=== PATIENT | female | born 1955 | race Caucasian/White ===

== ENCOUNTER 2018-04-26 10:16 | Emergency (ER) | payer MEDICARE ==
[2018-04-26] MEDS ORDERED: IOHEXOL 350 MG/ML 10 ML VIAL (for RAD DIAG) IVCONTRAST ONE (10:17)
[2018-04-26 10:28] VITALS: BP 124/71; PULSE 72; RESP 16; TEMP 98.7; O2SAT 99
[2018-04-26] MEDS ORDERED: TRAM50TA PO (11:01)
[2018-04-26] MEDS ORDERED: MELA5 PO (11:01)
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
[2018-04-26 11:41] LABS: AUTOMATED NEUTROPHIL # 3.1 TH/MM3 (1.8-7.7); BASOPHIL # 0.1 TH/MM3 (0-0.2); BASOPHIL % 1.5 % (0.0-2.0); EOSINOPHIL # 0.2 TH/MM3 (0-0.4); EOSINOPHIL % 4.3 % (0.0-4.0); HEMATOCRIT 37.9 % (35.0-46.0); HEMOGLOBIN 12.8 GM/DL (11.6-15.3); LYMPH % 30.8 % (9.0-44.0); LYMPHOCYTE # 1.7 TH/MM3 (1.0-4.8); MEAN CELL VOLUME 90.2 FL (80.0-100.0); MEAN CORPUSCULAR HEMOGLOBIN 30.5 PG (27.0-34.0); MEAN CORPUSCULAR HGB CONC 33.8 % (32.0-36.0); MEAN PLATELET VOLUME 7.4 FL (7.0-11.0); MONO % 7.4 % (0.0-8.0); MONOCYTE # 0.4 TH/MM3 (0-0.9); PLATELET COUNT 450 TH/MM3 (150-450); RED CELL DISTRIBUTION WIDTH 13.6 % (11.6-17.2); WHITE BLOOD COUNT 5.5 TH/MM3 (4.0-11.0)
[2018-04-26] MEDS ORDERED: KETOROLAC TROMETHAMINE 30 MG/ML (IVP) VIAL IV PUSH ONE (12:30)
[2018-04-26 12:40] LABS: PROTHROMBIN TIME - PATIENT 10.6 SEC (9.8-11.6)
[2018-04-26 12:50] LABS: ALBUMIN 3.7 GM/DL (3.4-5.0); AST (GOT) 15 U/L (15-37); BICARBONATE 24.1 MEQ/L (21.0-32.0); BLOOD UREA NITROGEN 13 MG/DL (7-18); CHLORIDE 105 MEQ/L (98-107); CREATININE 0.89 MG/DL (0.50-1.00); GLOMERULAR FILTRATION RATE 64 ML/MIN (>89); GLUCOSE,RANDOM 92 MG/DL (74-106); MAGNESIUM 2.3 MG/DL (1.5-2.5); SODIUM (NA) 138 MEQ/L (136-145)
[2018-04-26 12:51] LABS: ALT (GPT) 21 U/L (10-53)
[2018-04-26 12:55] LABS: ALKALINE PHOSPHATASE 90 U/L (45-117); TOTAL BILIRUBIN ADULT 0.3 MG/DL (0.2-1.0); TOTAL PROTEIN 7.3 GM/DL (6.4-8.2); TROPONIN I LESS THAN 0.02 NG/ML (0.02-0.05)
--- NOTE | 2018-04-26 13:56 | RADRPT ---
EXAM DATE: 04/26/2018 1:21 PM EDT AGE/SEX: 63 years / Female INDICATIONS: Midsternal chest pain, evaluate for pulmonary emboli. CLINICAL DATA: This is the patient's initial encounter. Patient reports that signs and symptoms have been present for 1 day and indicates a pain score of 7/10. MEDICAL/SURGICAL HISTORY: . history of pulmonary PE None. RADIATION DOSE: 7.66 CTDI (mGy) COMPARISON: No prior [facility] exams available for comparison. TECHNIQUE: Volumetric scanning was performed using a multi-row detector CT scanner during bolus infu mary kate of 70 ml Omnipaque 350 (iohexol) nonionic water-soluble contrast as a single exam dose. The ronnie a was post processed with a variety of visualization algorithms including full volume maximum intensi ty projection and sliding thin slab reformation. Using automated exposure control and adjustment of the mA and/or kV according to patient size, radiation dose was kept as low as reasonably achievable t o obtain optimal diagnostic quality images. FINDINGS: Pulmonary Arteries: No filling defects are seen in the pulmonary arteries out to the subsegmental ve ssels. The left and right pulmonary arteries are normal in diameter. Lung: No infiltrates seen. Effusion: None. Mediastinum: No evidence of mediastinal or hilar adenopathy. Other: The axilla is unremarkable. CONCLUSION: 1. This study is negative for pulmonary embolism. Electronically signed by: Ru Frank MD 04/26/2018 1:55 PM EDT
--- NOTE | 2018-04-26 14:04 | PD ---
Physical Exam Narrative GENERAL: 63 y/o female presents in no apparent distress SKIN: Focused skin assessment warm/dry. HEAD: Atraumatic. Normocephalic. EYES: Pupils equal and round. No scleral icterus. No injection or drainage. ENT: No nasal bleeding or discharge. Mucous membranes pink and moist. NECK: Trachea midline. CARDIOVASCULAR: Regular rate and rhythm. RESPIRATORY: No accessory muscle use. Clear to auscultation. Breath sounds equal bilaterally. GASTROINTESTINAL: Abdomen soft, non-tender, nondistended. MUSCULOSKELETAL: No obvious deformities. No clubbing. No cyanosis. No edema. NEUROLOGICAL: Awake and alert. No obvious cranial nerve deficits. Motor grossly within normal limits. Normal speech. PSYCHIATRIC: Appropriate mood and affect; insight and judgment normal. Data Data Last Documented VS Vital Signs Date Time Temp Pulse Resp B/P (MAP) Pulse Ox O2 Delivery O2 Flow Rate FiO2 04/26/18 10:28 98.7 72 16 124/71 (88) 99 Orders Orders Electrocardiogram (04/26/18 ) Ckmb (Isoenzyme) Profile (04/26/18 10:42) Complete Blood Count With Diff (04/26/18 10:42) Comprehensive Metabolic Panel (04/26/18 10:42) Magnesium (Mg) (04/26/18 10:42) Prothrombin Time / Inr (Pt) (04/26/18 10:42) Act Partial Throm Time (Ptt) (04/26/18 10:42) Troponin I (04/26/18 10:42) Chest, Single Ap (04/26/18 10:42) Ecg Monitoring (04/26/18 10:42) Bilateral Bp Monitoring (04/26/18 10:42) Iv Access Insert/Monitor (04/26/18 10:42) Oximetry (04/26/18 10:42) Ct Pulmonary Angiogram (04/26/18 10:42) Ketorolac Inj (Toradol Inj) (04/26/18 12:30) Iohexol 350 Inj (Omnipaque 350 Inj) (04/26/18 10:17) Labs Laboratory Tests Test 04/26/18 11:10 04/26/18 12:09 White Blood Count 5.5 TH/MM3 Red Blood Count 4.20 MIL/MM3 Hemoglobin 12.8 GM/DL Hematocrit 37.9 % Mean Corpuscular Volume 90.2 FL Mean Corpuscular Hemoglobin 30.5 PG Mean Corpuscular Hemoglobin Concent 33.8 % Red Cell Distribution Width 13.6 % Platelet Count 450 TH/MM3 Mean Platelet Volume 7.4 FL Neutrophils (%) (Auto) 56.0 % Lymphocytes (%) (Auto) 30.8 % Monocytes (%) (Auto) 7.4 % Eosinophils (%) (Auto) 4.3 % Basophils (%) (Auto) 1.5 % Neutrophils # (Auto) 3.1 TH/MM3 Lymphocytes # (Auto) 1.7 TH/MM3 Monocytes # (Auto) 0.4 TH/MM3 Eosinophils # (Auto) 0.2 TH/MM3 Basophils # (Auto) 0.1 TH/MM3 CBC Comment DIFF FINAL Differential Comment Prothrombin Time 10.6 SEC Prothromb Time International Ratio 1.0 RATIO Activated Partial Thromboplast Time 25.7 SEC Blood Urea Nitrogen 13 MG/DL Creatinine 0.89 MG/DL Random Glucose 92 MG/DL Total Protein 7.3 GM/DL Albumin 3.7 GM/DL Calcium Level 9.0 MG/DL Magnesium Level 2.3 MG/DL Alkaline Phosphatase 90 U/L Aspartate Amino Transf (AST/SGOT) 15 U/L Alanine Aminotransferase (ALT/SGPT) 21 U/L Total Bilirubin 0.3 MG/DL Sodium Level 138 MEQ/L Potassium Level 4.0 MEQ/L Chloride Level 105 MEQ/L Carbon Dioxide Level 24.1 MEQ/L Anion Gap 9 MEQ/L Estimat Glomerular Filtration Rate 64 ML/MIN Total Creatine Kinase 61 U/L Troponin I LESS THAN 0.02 NG/ML MDM Supervised Visit with MARILEE: Yes Interpretation(s) CBC & BMP Diagram 04/26/18 11:10 04/26/18 12:09 Total Protein 7.3, Albumin 3.7, Calcium Level 9.0, Magnesium Level 2.3, Alkaline Phosphatase 90, Aspartate Amino Transf (AST/SGOT) 15, Alanine Aminotransferase (ALT/SGPT) 21, Total Bilirubin 0.3 Last 24 hours Impressions Chest X-Ray 04/26/18 1042 Signed Impressions: CONCLUSION: Negative examination. CT Angiography 04/26/18 1042 Signed Impressions: CONCLUSION: 1. This study is negative for pulmonary embolism. Narrative Course I, Dr. fox, have reviewed the advance practice practitioner's documentation and am in agreement, met with the patient face to face, made the diagnosis, and the medical decision making was done by me. *My assessment and Findings: 63 y/o female with one month h/o right sided chest pain, workup in the ER is negative. Likely musculoskeletal in origin. Can follow with primary care physician Diagnosis Primary Impression: Chest wall pain Patient Instructions: General Instructions Disposition: 01 DISCHARGE HOME Condition: Stable Inés Fox MD Apr 26, 2018 14:04
[2018-04-26] MEDS ORDERED: IBUP-232 PO (14:05)
--- NOTE | 2018-04-26 17:18 | EKG ---
Date Performed: 04/26/2018 Time Performed: 10:52:53 PTAGE: 63 years EKG: Sinus rhythm POSSIBLE RIGHT VENTRICULAR CONDUCTION DELAY BORDERLINE ECG NO PREVIOUS TRACING DOCTOR: Haylee Dunlap Interpretating Date/Time 04/26/2018 17:16:27
== END 2018-04-26 14:43 | disposition home or self-care (01) ==
LOC: NEPE 10:16
DX: M94.0 Chondrocostal junction syndrome [Tietze] (principal); R94.31 Abnormal electrocardiogram [ECG] [EKG]; Z86.718 Personal history of other venous thrombosis and embolism
CPT/HCPCS: 71045; 71275; 80053; 82550; 83735; 84484; 85025; 85610; 85730; 93005; 96374; 99285; J1885; Q9967